=== PATIENT | male | born 1990 | race African-American/Black ===

== ENCOUNTER 2018-08-29 14:34 | Emergency (ER) | payer OTHER ==
[~2018-08-29] VITALS: Ht 180.3 cm; Wt 110.0 kg
[2018-08-29] MEDS ORDERED: SODIUM CHLORIDE 0.9% 1,000 ML IV ONE (15:05)
[2018-08-29] MEDS ORDERED: LEVETIRACETAM 1000MG/100ML 100 ML IV ONE (15:15)
[2018-08-29] MEDS ORDERED: PHENYTOIN SODIUM EXTENDED 100MG CAPSULE PO ONE (15:15)
[2018-08-29 16:46] LABS: CHLORIDE 103 mEq/L (98-107)
[2018-08-29 16:49] LABS: BASOPHILS % 0.3 % (0.0-2.0); EOSINOPHILS % 4.2 % (0.0-5.0); HEMATOCRIT. 45.4 % (42.0-52.0); HEMOGLOBIN. 15.3 g/dL (14.0-18.0); MEAN PLATELET VOLUME 7.5 fl (7.4-10.4); MONOCYTES % 8.7 % (2.0-8.0); NEUTROPHILS % 66.8 % (40.0-76.0); PLATELET 323 x1000/uL (130-400); RED BLOOD CELL COUNT 5.11 mill/uL (4.7-6.1); RED CELL DISTRIBUTION WIDTH 13.1 % (11.6-14.6)
[2018-08-29 16:53] LABS: ETHANOL BLOOD < 10 mg/dL
[2018-08-29] MEDS ORDERED: ACETAMINOPHEN 325MG TABLET PO ONE (17:45)
[2018-08-29 18:44] LABS: *AMPHETAMINES SCREEN URINE NEGATIVE (NEGATIVE); *BARBITURATES SCREEN URINE NEGATIVE (NEGATIVE); *BENZODIAZEPINES SCREEN URINE NEGATIVE (NEGATIVE); *COCAINE SCREEN URINE PRESUMTIVE POSITIVE (NEGATIVE); CANNABINOID URINE SCREEN PRESUMTIVE POSITIVE (NEGATIVE); METHADONE URINE SCREEN NEGATIVE (NEGATIVE); OPIATES URINE SCREEN NEGATIVE (NEGATIVE); PHENCYCLIDINE URINE SCREEN NEGATIVE (NEGATIVE)
[2018-08-29 20:25] VITALS: BP 125/61
== END 2018-08-29 20:25 | disposition home or self-care (01) ==
LOC: ER 14:34
DX: G40.909 Epilepsy, unspecified, not intractable, without status epilepticus (principal); S09.8XXA Other specified injuries of head, initial encounter; X58.XXXA Exposure to other specified factors, initial encounter; Y93.89 Activity, other specified; Y92.488 Other paved roadways as the place of occurrence of the external cause
CPT/HCPCS: 36415; 70450; 80048; 80305; 85025; 96365; 99285; G0482; J1953; J7030; Z7610

== ENCOUNTER 2018-10-15 11:20 | Emergency (ER) | payer SELFPAY ==
[~2018-10-15] VITALS: Ht 182.9 cm; Wt 91.0 kg
[2018-10-15] MEDS ORDERED: SODIUM CHLORIDE 0.9% 1,000 ML IV ONE (11:46)
[2018-10-15] MEDS ORDERED: LEVETIRACETAM 1000MG/100ML 100 ML IV ONE (12:00)
[2018-10-15 13:25] LABS: CHLORIDE 106 mEq/L (98-107)
[2018-10-15 13:29] LABS: BASOPHILS % 0.2 % (0.0-2.0); EOSINOPHILS % 3.5 % (0.0-5.0); HEMATOCRIT. 42.7 % (42.0-52.0); HEMOGLOBIN. 14.6 g/dL (14.0-18.0); LYMPHOCYTES % 19.6 % (20.0-50.0); MEAN CORPUSCULAR HEMOGLOBIN 30.4 pg (28.0-32.0); MEAN PLATELET VOLUME 7.6 fl (7.4-10.4); MONOCYTES % 9.7 % (2.0-8.0); PLATELET 331 x1000/uL (130-400); RED CELL DISTRIBUTION WIDTH 13.1 % (11.6-14.6)
[2018-10-15 13:30] LABS: ETHANOL BLOOD < 10 mg/dL
[2018-10-15 13:42] LABS: VALPROIC ACID < 3.0 ug/mL (50-100)
[2018-10-15 16:00] VITALS: BP 150/77
== END 2018-10-15 16:17 | disposition home or self-care (01) ==
LOC: ER 11:20
DX: G40.909 Epilepsy, unspecified, not intractable, without status epilepticus (principal); Z91.14 Patient's other noncompliance with medication regimen; R00.0 Tachycardia, unspecified; F12.10 Cannabis abuse, uncomplicated; F14.10 Cocaine abuse, uncomplicated; F17.200 Nicotine dependence, unspecified, uncomplicated
CPT/HCPCS: 36415; 80053; 80165; 80185; 85025; 96365; 96366; 99283; G0482; J1953; J7030

== ENCOUNTER 2019-06-20 12:35 | Emergency (ER) | payer MEDICAID ==
[~2019-06-20] VITALS: Ht 177.8 cm; Wt 100.0 kg
[2019-06-20] MEDS ORDERED: LEVETIRACETAM 1000MG/100ML 100 ML IV ONE (13:15)
[2019-06-20] MEDS ORDERED: SODIUM CHLORIDE 0.9% 1,000 ML IV ONE (13:15)
[2019-06-20 14:31] LABS: CHLORIDE 106 mEq/L (98-107)
[2019-06-20 14:35] LABS: ETHANOL BLOOD < 10 mg/dL
[2019-06-20 15:05] LABS: *AMPHETAMINES SCREEN URINE NEGATIVE (NEGATIVE); *BARBITURATES SCREEN URINE NEGATIVE (NEGATIVE); *BENZODIAZEPINES SCREEN URINE NEGATIVE (NEGATIVE); *COCAINE SCREEN URINE PRESUMTIVE POSITIVE (NEGATIVE); METHADONE URINE SCREEN NEGATIVE (NEGATIVE); OPIATES URINE SCREEN NEGATIVE (NEGATIVE)
[2019-06-20 15:07] LABS: CANNABINOID URINE SCREEN PRESUMTIVE POSITIVE (NEGATIVE); PHENCYCLIDINE URINE SCREEN NEGATIVE (NEGATIVE)
[2019-06-20] MEDS ORDERED: PHENYTOIN SODIUM 1,000 MG in SODIUM CHLORIDE 0.9% 100 ML IV ONE (15:15)
[2019-06-20 17:29] VITALS: BP 117/77
== END 2019-06-20 17:31 | disposition home or self-care (01) ==
LOC: ER 12:35
DX: G40.909 Epilepsy, unspecified, not intractable, without status epilepticus (principal); F14.129 Cocaine abuse with intoxication, unspecified; F12.10 Cannabis abuse, uncomplicated; F17.210 Nicotine dependence, cigarettes, uncomplicated; Z71.6 Tobacco abuse counseling; Z91.14 Patient's other noncompliance with medication regimen
CPT/HCPCS: 36415; 80048; 80185; 80305; 80320; 96365; 96366; 96367; 99283; 99406; J1165; J1953; J7030; J7050; G0480